=== PATIENT | female | born 1965 | race Caucasian/White ===

== ENCOUNTER → 2019-02-25 09:14 | Outpatient (CLI) | payer BC, SELFPAY ==
[2019-02-25 09:57] LABS: Cholesterol 232 mg/dL (140-199); HDL Cholesterol 52 mg/dL (40-60); LDL Cholesterol Calculated 153 mg/dL (<100); Triglycerides 135 mg/dL (35-150); VLDL Cholesterol Calculated 27 mg/dL (2-30)
[2019-02-25 10:28] LABS: Thyroid Stimulating Hormone 2.52 uIU/mL (0.47-4.68)
== END ==
DX: E03.9 Hypothyroidism, unspecified (principal)
CPT/HCPCS: 36415; 80061; 84443

== ENCOUNTER → 2020-02-09 12:30 | Outpatient (CLI) | payer OTHER, BC, SELFPAY ==
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
== END ==
PROVIDERS: Referring Provider Physician Assistant; Visit Provider Physician Assistant
DX: S49.92XA Unspecified injury of left shoulder and upper arm, initial encounter (principal); R10.2 Pelvic and perineal pain; X58.XXXA Exposure to other specified factors, initial encounter
CPT/HCPCS: 72170; 73000; 73030

== ENCOUNTER → 2020-02-11 16:53 | Outpatient (CLI) | payer OTHER, BC, SELFPAY ==
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
== END ==
PROVIDERS: PCP Registered Nurse Diabetes Educator; Referring Provider Nurse Practitioner; Visit Provider Nurse Practitioner
DX: S40.011A Contusion of right shoulder, initial encounter (principal); M25.511 Pain in right shoulder; V89.2XXA Person injured in unspecified motor-vehicle accident, traffic, initial encounter
CPT/HCPCS: 71046; 73030

== ENCOUNTER → 2020-02-16 15:29 | Outpatient (CLI) | payer OTHER, SELFPAY ==
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
== END ==
PROVIDERS: PCP Registered Nurse Diabetes Educator; Referring Provider Nurse Practitioner; Visit Provider Nurse Practitioner
DX: M54.2 Cervicalgia (principal); M47.812 Spondylosis without myelopathy or radiculopathy, cervical region
CPT/HCPCS: 72125

== ENCOUNTER → 2020-03-24 11:11 | Outpatient (CLI) | payer OTHER, SELFPAY ==
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
== END ==
PROVIDERS: PCP Registered Nurse Diabetes Educator; Referring Provider Nurse Practitioner Family; Visit Provider Nurse Practitioner Family
DX: R07.81 Pleurodynia (principal)
CPT/HCPCS: 71101

== ENCOUNTER → 2020-04-17 08:45 | Outpatient (CLI) | payer BC, SELFPAY ==
[2020-04-17 10:52] LABS: Cholesterol 232 mg/dL (140-199); HDL Cholesterol 52 mg/dL (40-60); LDL Cholesterol Calculated 154 mg/dL (<100); Triglycerides 128 mg/dL (35-150); VLDL Cholesterol Calculated 26 mg/dL (2-30)
[2020-04-17 11:19] LABS: Thyroid Stimulating Hormone 2.46 uIU/mL (0.47-4.68)
== END ==
PROVIDERS: PCP Registered Nurse Diabetes Educator; Referring Provider Registered Nurse Diabetes Educator; Visit Provider Registered Nurse Diabetes Educator
DX: E03.9 Hypothyroidism, unspecified (principal)
CPT/HCPCS: 36415; 80061; 84443

== ENCOUNTER → 2020-09-03 11:04 | Outpatient (CLI) | payer BC, SELFPAY ==
[2020-09-03 11:36] LABS: COVID19 -Nasal RAPID POSITIVE (Negative)
== END ==
PROVIDERS: PCP Nurse Practitioner; Visit Provider Physician Assistant
DX: U07.1 COVID-19 (principal)
CPT/HCPCS: 87635

== ENCOUNTER 2020-11-22 18:35 | Inpatient (IN) | payer BC, SELFPAY ==
[2020-11-22] VITALS (9 sets, daily range): BP systolic 107–128; BP diastolic 63–71; PULSE 60–72; RESP 16–29; TEMP 37.2; O2SAT 96–100; BMI 26.1
[2020-11-22] MEDS: KETOROLAC 30 MG/ML VIAL 15 MG IV (19:51)
[2020-11-22] MEDS: ONDANSETRON 4 MG/2 ML INJ IV (19:58)
[2020-11-22 20:04] LABS: Add Manual Diff / Slide Review NO; Basophils Absolute Auto 0 /uL (0-100); Basophils Percent Auto 0.3 % (0-2); Eosinophils Absolute Auto 0 /uL (0-450); Eosinophils Percent Auto 0.1 % (2-4); Hematocrit 41.8 % (36-46); Hemoglobin 13.7 g/dL (12.0-16.0); Lymphocytes Absolute Auto 1100 /uL (1100-4500); Lymphocytes Percent Auto 8.5 % (25-40); Mean Corpuscular HGB Conc 32.8 % (30-36); Mean Corpuscular Hemoglobin 26.6 PG (26-34); Monocytes Absolute Auto 800 /uL (0-900); Monocytes Percent Auto 6.2 % (3-14); Neutrophils Absolute Auto 11300 /uL (1500-7000); Neutrophils Percent Auto 84.9 % (50-75); Platelet Count 193 X10^3/uL (150-400); Red Blood Cell Count 5.15 X10^6/uL (4.0-5.2); Red Cell Distribution Width 13.9 % (11.6-14.8); White Blood Cell Count 13.3 X10^3/uL (4.5-11.0)
[2020-11-22 20:22] LABS: Alanine Aminotransferase 20 IU/L (<35); Albumin 4.2 g/dL (3.5-5.0); Albumin Globulin Ratio 1.1 (1.0-2.8); Alkaline Phosphatase 72 U/L (38-126); Aspartate Aminotransferase 29 IU/L (14-36); BUN Creatinine Ratio 12.9 (6-22); Bilirubin Total 2.9 mg/dL (0.2-1.3); Blood Urea Nitrogen 11 mg/dL (7-17); Calcium 9.5 mg/dL (8.4-10.2); Carbon Dioxide 25 mmol/L (22-32); Chloride 102 mmol/L (98-107); Estimated Glomerular Filt Rate > 60.0 mL/min (>60); Globulin 3.7 g/dL (1.7-4.1); Glucose 119 mg/dL (70-100); HEMOLYSIS < 15 (0-50); Lipase 105 U/L (23-300); Potassium 3.6 mmol/L (3.4-5.1); Sodium 136 mmol/L (137-145); Total Protein 7.9 g/dL (6.3-8.2)
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
[2020-11-22] MEDS: PIPERACILLIN/TAZO 4.5 GM in SODIUM CHLORIDE 0.9% 100 ML 200 ML IV (21:22)
[2020-11-22] MEDS: MORPHINE 4 MG/ML INJ IV ×2 (21:22→23:17)
[2020-11-22] MEDS: SODIUM CHLORIDE 0.9% 1,000 ML 1000 ML IV (21:23)
--- NOTE | 2020-11-22 21:47 | PC.NURSE ---
Patient refused the Covid swab; states she was positive in August and that she is immune and refuses the admit swab. notified.
[2020-11-22 22:34] LABS: COVID19 -Nasal RAPID Negative (Negative)
--- NOTE | 2020-11-22 22:37 | PC.NURSE ---
Pt given ice chips with ok from Dr Aggarwal. NPO after midnight.
--- NOTE | 2020-11-22 23:50 | PC.NURSE ---
Patient moved upstairs to Room 214; daughter accompanied patient upstairs. RN-RN report given to Jannet.
[2020-11-23] VITALS (22 sets, daily range): BP systolic 88–119; BP diastolic 51–75; PULSE 57–89; RESP 14–20; TEMP 35.8–39.4; O2SAT 89–100; BMI 26.1
--- NOTE | 2020-11-23 | PATH_ITS ---
[facility] Accession Number: [id number] . 01 Material submitted: . appendix - APPENDIX . 01 Clinical history: . RIGHT SIDE LOWER PAIN . 02 Diagnosis: Appendix, Appendectomy: Acute appendicitis with serositis and features of rupture. MRV 11/26/2020 1236 Local . 02 Electronically signed: . Ivon Jenkins MD, Pathologist NPI- [id number] . 01 Gross description: . The specimen is received in formalin labeled appendix and consists of a fragmented tissue, and disrupted appendix measuring 6.5 cm in length x 0.8 cm in diameter. The serosa is anthony-pink and ragged. Sectioning reveals a anthony-pink mucosa and a lumen measuring 0.3 cm in diameter. [employer] sections are submitted, to include the en face margin (green), central cross sections and bisected tip, in cassette A1. ([id number]) /[facility] 11/26/2020 1037 Local . 02 Pathologist provided ICD-10: K35.20 . 02 CPT . 245192 Performed at: 01 [facility] [address], [place], [place] [id number] MD Frandy Cronin MD Phone: [phone] Performed at: 02 [facility] [address] [place], [place] [id number] MD Bertha Briones MD Phone: [phone]
[2020-11-23] MEDS: SODIUM CHLORIDE 0.9% 1,000 ML 125 ML IV ×2 (00:46→11:31)
[2020-11-23] MEDS: MORPHINE 4 MG/ML INJ IV (00:57)
[2020-11-23] MEDS: PIPERACILLIN/TAZO 4.5 GM in SODIUM CHLORIDE 0.9% 100 ML 25 ML IV ×3 (05:13→20:51)
--- NOTE | 2020-11-23 06:07 | PC.NURSE ---
Patient temperature increased from 99.6 to 103. Patient was cooled with cool packs and blankets removed. Temp was recheck 30 min later and was down to 102.9. Cooling measures continued and rechecked temp 30 min later. Temperature at 0600 was back to 103. Dr. Otto was paged at 0600. Dr. Otto returned the call at 0610 and stated not to worry about the fever. No orders received.
[2020-11-23 06:50] LABS: WBC Urine None Seen (0-5/HPF)
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
[2020-11-23] MEDS: LACTATED RINGERS 1,000 ML 42 ML IV ×2 (07:24→08:39)
[2020-11-23 07:26] LABS: Appearance Urine UA TURBID; Bilirubin Urine UA NEGATIVE (NEGATIVE); Color Urine UA YELLOW; Glucose Urine UA NEGATIVE (Negative); Ketones Urine UA 1+ (NEGATIVE); Leukocyte Esterase Urine UA NEGATIVE (NEGATIVE); Nitrite Urine UA NEGATIVE (Negative); Occult Blood Urine UA 2+ (Negative); Protein Urine UA TRACE (Negative); Urobilinogen Urine UA 0.2 E.U./dL (0.2)
[2020-11-23 07:30] LABS: RBC Urine 0-1/HPF (0-5/HPF)
[2020-11-23 07:31] LABS: Amorphous Sediment Urine 4+; Bacteria Urine Occasional (0-1); Culture Indicated Urine Cult Not Indicated
--- NOTE | 2020-11-23 07:58 | SUR.OPER ---
Supine on padded OR bed, head on pillow, arm padded and tucked at side, legs uncrossed, safety belt at thigh, tape over blanket over lower legs .
[2020-11-23] MEDS: BUPIVACAINE 0.25% (PF) VIAL 30 ML INJ (08:07)
--- NOTE | 2020-11-23 09:23 | PM.OP.1 ---
Operative Date/Time/Diagnoses Date of procedure: 11/23/20 Time of procedure: 09:23 Pre-op diagnosis: Acute appendicitis Post-op diagnosis: same Procedure & Clinicians Procedure: Laparoscopic appendectomy Same procedure as scheduled: Yes Indications: 55-year-old woman presented with [address] demonstrates acute appendicitis with free fluid Surgeon: Earle Otto Click Yes if Unassisted: Yes Anesthesia Type: General Operative Notes Findings: Perforated appendicitis with phlegmon Specimen(s): other (Appendix) Estimated Blood Loss (mL): 50 Procedure in detail: Patient was brought to the operating room placed supine on the table. Bilateral lower extremity compression devices were applied. Anesthesia was induced and they intubated with an endotracheal tube. They received 3.375 g of Zosyn prior to skin incision. The left arm was tucked and appropriately padded. They were prepped and draped in sterile fashion. Time-out was performed. An infraumbilical incision was made the umbilical stalk was grasped and elevated and incision was made and the abdomen was entered atraumatically. A 12 mm balloon trocar was then placed through the incision and pneumoperitoneum of 14 mm Hg was established. The scope was then inserted and the abdomen inspected, there was no evidence of injury upon entry. Two 5 mm ports were placed under direct visualization, one in the left lower quadrant and second in the lower midline. A thorough laparoscopic evaluation was performed inspecting all four quadrants. There was turbid fluid in the lower abdomen. The patient was then tilted right side up. The small bowel was then swept to the upper aspect of the abdomen. There were flimsy adhesions between the cecum and the abdominal wall which were carefully taken down. The tenie were followed to the base of the cecum where the base of the appendix was identified. The appendix was within a phlegmon which was bluntly dissected. The appendix was was mobilized from its lateral attachments. It was acutely inflamed and peforated. The mesoappendix was then divided the maryland electrocautery. The mesenteric line was inspected for hemostasis. The appendix was then amputated flush at the cecum using the endo-stapler blue load, the base was viable. The specimen was retrieved using an endoscopic retrieval bad through the 10 mm infra-umbilical port. The right paracolic gutter and the pouch of Darrell were irrigated A 19F marty was placed into the right lower quadrant brought out through the left lateral port. The 5 mm ports were then removed under direct visualization. The umbilical fascial incision was closed with 0 Vicryl in a figure-eight fashion. The skin wounds were irrigated and closed with 4-0 Monocryl followed by the application of Dermabond. Sponge instrument count at the end of the operation was correct. The patient tolerated procedure well was extubated and transferred to the postoperative care unit in stable condition. Complications: none Post-operative Condition: stable Disposition: Acute Care
--- NOTE | 2020-11-23 10:48 | PC.NURSE ---
Addendum entered by Amelie Bowden R.N. 11/23/20 15:17: Patient given oxycodone and tylenol earlier for sharp pain and headache. This has been helpful to patient. She was up to the commode x1 and moved well. Daughter in room. Patient has had 200+plus out of her eder drain, last amount out was 20cc. Passed onto Annamaria RN...She will call the surgeon to notify him if the amount of drainage becomes more. She is resting now. Original Note: Patient back from surgery aroundd 0945, she is awake but sleepy. Patient has a eder drain that is putting out strawberry colored drainage. She has lap site incisions with the marty drain present to left side of abdomen. She is tolerating cranberry juice and water without any nausea. Patient is lying supine and comfortable. IVF infusing.
[2020-11-23] MEDS: ACETAMINOPHEN 325 MG TABLET 650 MG PO ×3 (12:34→23:47)
[2020-11-23] MEDS: OXYCODONE IR 5 MG TABLET PO ×2 (12:34→21:06)
--- NOTE | 2020-11-23 13:47 | CM.DANOTE ---
DCP Brief Assessment Note Patient is a 55 year old female who was admitted on 11/22/20 for R Side Lower Pain. Pt has [employer] for insurance and her PCP is Yvonne Aragon. EMR was reviewed. Per Surgeon, pt with acute appendicitis likely ruptured and agreeable to recommended Lap Appe and was taken down to surgery this morning. Per RN, pt off the floor most of the morning in surgery and returned quite drowsy but appropriate. Plan: SW to follow for bedside assessment tomorrow when pt more medically appropriate to confirm likely plan of d/c home with family when stable. JOSE Antonio
[2020-11-23] MEDS: DOCUSATE 100 MG CAPSULE PO (20:51)
[2020-11-24] VITALS (14 sets, daily range): BP systolic 94–104; BP diastolic 56–74; PULSE 45–92; RESP 16–18; TEMP 36.1–36.9; O2SAT 96–100
--- NOTE | 2020-11-24 00:50 | PC.NURSE ---
Patients BP reading was 88/60 with a HR of 57, however the patient states this is pretty normal, as she tends to run low. Patient states she feels foggy but denies lightheaded or dizziness. Patient states she has felt foggy since surgery and there hasn't been an increase. Patients dressings had been removed and slight redness was noted at incision sites. Patient had scheduled Tylenol given and denies an increase in pain. Patient resting comfortably in bed with call light within reach. Patient was educated to call if she has a change in foggy feeling or begins to feel lightheaded or dizzy.
[2020-11-24] MEDS: SODIUM CHLORIDE 0.9% 1,000 ML 125 ML IV (02:10)
[2020-11-24] MEDS: PIPERACILLIN/TAZO 4.5 GM in SODIUM CHLORIDE 0.9% 100 ML 25 ML IV (05:19)
[2020-11-24] MEDS: ACETAMINOPHEN 325 MG TABLET 650 MG PO ×3 (05:20→17:58)
[2020-11-24] MEDS: LEVOTHYROXINE 25 MCG TABLET PO (05:20)
[2020-11-24 05:46] LABS: Add Manual Diff / Slide Review NO; Basophils Absolute Auto 0 /uL (0-100); Basophils Percent Auto 0.2 % (0-2); Eosinophils Absolute Auto 0 /uL (0-450); Hematocrit 33.9 % (36-46); Hemoglobin 11.1 g/dL (12.0-16.0); Lymphocytes Absolute Auto 1200 /uL (1100-4500); Lymphocytes Percent Auto 9.1 % (25-40); Mean Corpuscular HGB Conc 32.6 % (30-36); Mean Corpuscular Hemoglobin 26.8 PG (26-34); Monocytes Absolute Auto 1000 /uL (0-900); Monocytes Percent Auto 7.4 % (3-14); Neutrophils Absolute Auto 11100 /uL (1500-7000); Neutrophils Percent Auto 83.3 % (50-75); Platelet Count 144 X10^3/uL (150-400); Red Blood Cell Count 4.14 X10^6/uL (4.0-5.2); Red Cell Distribution Width 14.2 % (11.6-14.8); White Blood Cell Count 13.3 X10^3/uL (4.5-11.0)
[2020-11-24 05:54] LABS: BUN Creatinine Ratio 15.2 (6-22); Blood Urea Nitrogen 12 mg/dL (7-17); Calcium 8.3 mg/dL (8.4-10.2); Carbon Dioxide 25 mmol/L (22-32); Chloride 107 mmol/L (98-107); Estimated Glomerular Filt Rate > 60.0 mL/min (>60); Glucose 111 mg/dL (70-100); HEMOLYSIS < 15 (0-50); Potassium 3.6 mmol/L (3.4-5.1); Sodium 136 mmol/L (137-145)
[2020-11-24] MEDS: ENOXAPARIN 40 MG/0.4 ML SYRINGE SUBCUT (08:14)
[2020-11-24] MEDS: KETOROLAC 30 MG/ML VIAL IV ×2 (08:15→17:06)
[2020-11-24] MEDS: METOPROLOL ER 50 MG TABLET PO (08:25)
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
[2020-11-24] MEDS: HYDROCODONE/ACET 5/325 TABLET 1 TAB PO (10:37)
--- NOTE | 2020-11-24 11:20 | CM.DANOTE ---
Per Surgeon, pt making progress after her Lap Appe with rupture and starting to ambulate more but due to white count and rupture MD to have pt with at least one more day of IV-Abx and then recheck white count towards possible d/c tomorrow if stable. SW met briefly bedside with pt and adult Dtr as [employer] was getting pt prepared for ambulating the taylor some and pt confirms that she is aware she may be stable for d/c tomorrow if white count is normal. Pt confirms that her will be able to provide assist at d/c as well as some assist from her Dtr. Pt is quite active and independent at baseline and does not anticipate any SW needs at d/c. Plan: SW to follow closely to determine if pt will be stable for d/c home with family assist tomorrow and any further identified discharge planning needs. JOSE Antonio Discharge Planning/Care Management Advanced directive, confirm from FAMILY Start: 11/23/20 00:20 Freq: Q24H Status: Active Protocol: Document 11/23/20 00:20 JK (Rec: 11/23/20 03:38 JK [id number]) Advance Directive, confirm on record Time 23:55 Person contacted patient Copy received No Document 11/24/20 00:20 JK (Rec: 11/24/20 01:13 JK [id number]) Advance Directive, confirm on record Time 23:55 Person contacted patient Copy received No Document 11/24/20 07:40 CM (Rec: 11/24/20 09:51 CM [id number]) Advance Directive, confirm on record Time 23:55 Person contacted patient Copy received No Time 09:48 Person contacted Pt Copy received No Advanced directive available on record No CM Discharge Assessment Start: 11/24/20 11:19 Freq: Status: Active Protocol: Document 11/24/20 11:19 BF (Rec: 11/24/20 11:20 BF [id number]) Discharge Planning Assessment 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 Yes Advance Directives on File No History Provided By Patient,Medical Record Has Patient been admitted in last 30 No days? Prior Living Arrangements House Household Members spouse Type of transporation used prior to Drives own vehicle admit Independent with ADL's Yes Is patient alert and oriented? Yes Caregiver for Another No Barriers to Discharge No Discharge Plan Home Transportation Arrangement Spouse or adult Dtr to transport at d/c Referrals Initiated None needed Review Status In Process Please Provide Date Initial DC 11/24/20 Assessment Was Performed Next Review Type Continued Stay Review
[2020-11-24] MEDS: PIPERACILLIN/TAZO 3.375 GM in SODIUM CHLORIDE 0.9% 100 ML 25 ML IV ×2 (13:33→22:09)
[2020-11-24] MEDS: DOCUSATE 100 MG CAPSULE PO (22:09)
--- NOTE | 2020-11-24 23:15 | PC.NURSE ---
A&ox3. VSS. Pain 5/10 in abdomen, given toradol at 1706 which provided some relief (2-3/10). Garfield drain draining serosanguineous fluid. 1 person assist with walker and gait belt. Saline locked. Call light within reach, bed low.
[2020-11-25] MEDS: HYDROCODONE/ACET 5/325 TABLET 1 TAB PO (00:30)
[2020-11-25 01:00] VITALS: BP 100/71; PULSE 58; RESP 18; TEMP 36.6; O2SAT 95; O2SAT 96
[2020-11-25 05:00] VITALS: BP 96/61; PULSE 58; RESP 16; TEMP 36.3; O2SAT 94; O2SAT 97
[2020-11-25] MEDS: PIPERACILLIN/TAZO 3.375 GM in SODIUM CHLORIDE 0.9% 100 ML 25 ML IV (05:11)
[2020-11-25 05:55] LABS: Add Manual Diff / Slide Review NO; Basophils Absolute Auto 0 /uL (0-100); Basophils Percent Auto 0.3 % (0-2); Eosinophils Absolute Auto 100 /uL (0-450); Eosinophils Percent Auto 1.6 % (2-4); Hematocrit 31.5 % (36-46); Hemoglobin 10.4 g/dL (12.0-16.0); Lymphocytes Absolute Auto 1400 /uL (1100-4500); Lymphocytes Percent Auto 15.1 % (25-40); Mean Corpuscular HGB Conc 32.8 % (30-36); Mean Corpuscular Hemoglobin 26.8 PG (26-34); Mean Corpuscular Volume 81.7 fL (80-100); Monocytes Absolute Auto 500 /uL (0-900); Monocytes Percent Auto 5.3 % (3-14); Neutrophils Absolute Auto 7000 /uL (1500-7000); Neutrophils Percent Auto 77.7 % (50-75); Platelet Count 161 X10^3/uL (150-400); Red Blood Cell Count 3.86 X10^6/uL (4.0-5.2)
[2020-11-25 05:58] LABS: BUN Creatinine Ratio 14.9 (6-22); Blood Urea Nitrogen 13 mg/dL (7-17); Calcium 8.2 mg/dL (8.4-10.2); Carbon Dioxide 26 mmol/L (22-32); Chloride 108 mmol/L (98-107); Estimated Glomerular Filt Rate > 60.0 mL/min (>60); Glucose 86 mg/dL (70-100); HEMOLYSIS < 15 (0-50); Potassium 3.2 mmol/L (3.4-5.1); Sodium 137 mmol/L (137-145)
[2020-11-25] MEDS: LEVOTHYROXINE 25 MCG TABLET PO (06:14)
[2020-11-25] MEDS: ACETAMINOPHEN 325 MG TABLET 650 MG PO (06:14)
[2020-11-25] MEDS: KETOROLAC 30 MG/ML VIAL IV (06:15)
[2020-11-25 08:00] VITALS: BP 104/60; PULSE 52; RESP 16; TEMP 36.6; O2SAT 96
[2020-11-25 09:00] VITALS: O2SAT 96
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
--- NOTE | 2020-11-25 09:20 | PC.NURSE ---
Addendum entered by Monalisa Bettencourt R.N. 11/25/20 10:45: Went over dc instructions with patient and patients daughter, questions answered. Rx sent to [facility] electronically. Patient aware of follow up appt. Patient taken via wc to vehicle driven by family. Patient had all belongings. Original Note: Patient alert,m oriented denies need for pain meds at this time, no nausea ate 50% general diet. Dr Otto removed PAWAN drain.
--- NOTE | 2020-11-25 11:32 | CM.DPNOTE ---
DC Note DC order in place, home today, drain removed, w/family to assist. No needs from DCP team today JW
== END 2020-11-25 10:47 | disposition home or self-care (01) | DRG 340 ==
LOC: ED 22:17 → AC 11-23 06:56
PROVIDERS: Admitting Provider Surgery; Emergency Provider Emergency Medicine; PCP Nurse Practitioner; Visit Provider Surgery
PROC: 0DTJ4ZZ Resection of Appendix, Percutaneous Endoscopic Approach (ICD-10-PCS; CPT 44970; principal; 2020-11-23 07:30)
DX: K35.33 Acute appendicitis with perforation, localized peritonitis, and gangrene, with abscess (principal); I10 Essential (primary) hypertension; I48.91 Unspecified atrial fibrillation; E03.9 Hypothyroidism, unspecified; Z20.822 Contact with and (suspected) exposure to COVID-19
CPT/HCPCS: 36415; 44970; 74177; 80048; 80053; 81001; 83690; 85025; 87635; 93005; 94760; 99222; 99284; C9803; J0330; J1100; J1650; J1885; J2270; J2405; J2543; J2704; J3010; Q9967

== ENCOUNTER 2020-12-05 20:05 | Inpatient (IN) | payer BC, SELFPAY ==
[2020-11-22 23:57] VITALS: BMI 26.1
[2020-12-05] VITALS (10 sets, daily range): BP systolic 96–117; BP diastolic 56–68; PULSE 64–87; RESP 18–19; TEMP 36.9–38.4; O2SAT 92–100; BMI 25.4
--- NOTE | 2020-12-05 20:31 | DI.RAD.S_ITS ---
PROCEDURE: XR CHEST 1V INDICATIONS: suspected sepsis TECHNIQUE: One view of the chest was acquired. COMPARISON: [facility], , XR CHEST 2V, 02/11/2020, 16:55. FINDINGS: Surgical changes and devices: None. Lungs and pleura: Lungs are clear. No pleural effusions or pneumothorax. Mediastinum: Mediastinal contours appear normal. Heart size is normal. Bones and chest wall: No suspicious bony lesions. Overlying soft tissues appear unremarkable. IMPRESSION: Stable radiographic evaluation of the chest without acute cardiopulmonary abnormalities or focal airspace disease. Dictated by: Velasquez Orozco M.D. on 12/05/2020 at 21:11 Approved by: Velasquez Orozco M.D. on 12/05/2020 at 21:12
[2020-12-05] MEDS: SODIUM CHLORIDE 0.9% 1,000 ML 1000 ML IV (20:40)
[2020-12-05 20:53] LABS: Add Manual Diff / Slide Review NO; Basophils Absolute Auto 100 /uL (0-100); Basophils Percent Auto 0.8 % (0-2); Eosinophils Absolute Auto 200 /uL (0-450); Hematocrit 38.1 % (36-46); Hemoglobin 12.4 g/dL (12.0-16.0); Lymphocytes Absolute Auto 2000 /uL (1100-4500); Lymphocytes Percent Auto 12.3 % (25-40); Mean Corpuscular HGB Conc 32.5 % (30-36); Mean Corpuscular Hemoglobin 26.4 PG (26-34); Mean Corpuscular Volume 81.1 fL (80-100); Monocytes Absolute Auto 900 /uL (0-900); Monocytes Percent Auto 5.6 % (3-14); Neutrophils Absolute Auto 12900 /uL (1500-7000); Neutrophils Percent Auto 80.3 % (50-75); Platelet Count 389 X10^3/uL (150-400); Red Cell Distribution Width 14.1 % (11.6-14.8); White Blood Cell Count 16.1 X10^3/uL (4.5-11.0)
[2020-12-05 21:04] LABS: Lactate (Lactic Acid) 0.6 mmol/L (0.7-2.1)
[2020-12-05 21:05] LABS: Alanine Aminotransferase 26 IU/L (<35); Albumin Globulin Ratio 1.1 (1.0-2.8); Alkaline Phosphatase 100 U/L (38-126); Aspartate Aminotransferase 25 IU/L (14-36); BUN Creatinine Ratio 20.3 (6-22); Bilirubin Total 0.9 mg/dL (0.2-1.3); Blood Urea Nitrogen 16 mg/dL (7-17); Calcium 9.2 mg/dL (8.4-10.2); Carbon Dioxide 21 mmol/L (22-32); Chloride 105 mmol/L (98-107); Estimated Glomerular Filt Rate > 60.0 mL/min (>60); Globulin 3.8 g/dL (1.7-4.1); Glucose 113 mg/dL (70-100); HEMOLYSIS < 15 (0-50); Lipase 387 U/L (23-300); Sodium 136 mmol/L (137-145); Total Protein 7.8 g/dL (6.3-8.2)
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
--- NOTE | 2020-12-05 21:20 | DI.CT.S_ITS ---
PROCEDURE: CT ABDOMEN PELVIS W CON INDICATIONS: RLQ post appy with fever TECHNIQUE: After the administration of intravenous contrast, axial sections acquired from the lung bases to the pubic symphysis. Coronal and sagittal reformats were performed. For radiation dose reduction, the following was used: automated exposure control, adjustment of mA and/or kV according to patient size. COMPARISON: [facility], CT, CT ABDOMEN PELVIS W CON, 11/22/2020, 21:07. FINDINGS: ABDOMEN: Lung bases: Normal. Heart: No significant findings. Liver: Normal. Gallbladder: Contracted otherwise unremarkable Bile ducts: Normal. Pancreas: Normal. Spleen: Normal. Adrenals: Normal. Kidneys and Ureters: Normal. Stomach and duodenum: Normal. Bowel: No evidence of bowel obstruction. There is moderate stool. Postsurgical changes related to appendectomy, with clips in the right lower quadrant. Right lower quadrant inflammatory stranding is present in the operative area. There is a multiloculated complex fluid collection with early peripheral enhancement. Overall, the area measures approximately 3.3 x 3.4 x 4.5 cm. Other: No free air identified. Abdominal nodes: Normal. Aorta and IVC: Normal in size. Ventral wall: Normal. PELVIS: Bladder: Normal. Inguinal region: No hernia. Pelvic nodes: Normal. Bones: No suspicious bony lesions. No vertebral body compression fractures. IMPRESSION: Status post appendectomy. Developing right lower quadrant complex abscess. Findings concordant with the preliminary study interpretation provided at the time of the exam. Dictated by: Chapito Dhaliwal M.D. on 12/06/2020 at 8:05 Approved by: Chapito Dhaliwal M.D. on 12/06/2020 at 8:12
[2020-12-05 21:22] LABS: Procalcitonin 0.07 ng/mL (<0.5)
[2020-12-05] MEDS: MORPHINE 2 MG/ML INJ IV (22:19)
[2020-12-05] MEDS: PIPERACILLIN/TAZO 4.5 GM in SODIUM CHLORIDE 0.9% 100 ML 200 ML IV (23:18)
--- NOTE | 2020-12-05 23:31 | PC.NURSE ---
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 Dr Vasquez aware.
[2020-12-06 00:07] VITALS: BMI 26.4
[2020-12-06 00:30] LABS: COVID19 - ADMIT (NP swab/PCR) Negative (Negative)
[2020-12-06] MEDS: OXYCODONE IR 5 MG TABLET PO ×2 (01:08→22:28)
[2020-12-06] MEDS: DEXTROSE 5%-0.45% NS 1,000 ML 100 ML IV (01:13)
[2020-12-06] MEDS: PIPERACILLIN/TAZO 3.375 GM in SODIUM CHLORIDE 0.9% 100 ML 25 ML IV ×3 (03:42→21:34)
[2020-12-06 06:19] LABS: Add Manual Diff / Slide Review NO; Basophils Absolute Auto 100 /uL (0-100); Basophils Percent Auto 0.7 % (0-2); Eosinophils Absolute Auto 200 /uL (0-450); Eosinophils Percent Auto 1.7 % (2-4); Hemoglobin 11.2 g/dL (12.0-16.0); Lymphocytes Absolute Auto 1600 /uL (1100-4500); Lymphocytes Percent Auto 12.7 % (25-40); Mean Corpuscular HGB Conc 32.1 % (30-36); Mean Corpuscular Hemoglobin 26.4 PG (26-34); Mean Corpuscular Volume 82.1 fL (80-100); Monocytes Absolute Auto 1200 /uL (0-900); Monocytes Percent Auto 9.4 % (3-14); Neutrophils Absolute Auto 9700 /uL (1500-7000); Neutrophils Percent Auto 75.5 % (50-75); Platelet Count 333 X10^3/uL (150-400); Red Blood Cell Count 4.26 X10^6/uL (4.0-5.2); Red Cell Distribution Width 14.1 % (11.6-14.8); White Blood Cell Count 12.9 X10^3/uL (4.5-11.0)
[2020-12-06] MEDS: ACETAMINOPHEN 325 MG TABLET 650 MG PO ×3 (07:25→18:44)
[2020-12-06 08:00] VITALS: BP 95/61; PULSE 62; RESP 16; TEMP 37.3; O2SAT 97
[2020-12-06] MEDS: LEVOTHYROXINE 25 MCG TABLET PO (08:08)
[2020-12-06] MEDS: ENOXAPARIN 30 MG/0.3 ML SYRINGE SUBCUT (08:10)
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
[2020-12-06] MEDS: CELECOXIB 200 MG CAPSULE PO ×2 (09:47→21:33)
[2020-12-06] MEDS: DOCUSATE 100 MG CAPSULE PO ×2 (11:17→21:33)
--- NOTE | 2020-12-06 15:09 | PC.NURSE ---
Pt reports moderate pain of 4-5/10 to RUQ today, but declines opioid pain medication; PO Tylenol and PO Celebrex; BTs tympanic; low appetite but tolerating water; IV fluids continuing to infuse due to low oral intake; IV abx infusing
--- NOTE | 2020-12-06 15:24 | CM.DANOTE ---
DCP ASSESSMENT: Patient is a 55 year-old female admitted for surgical complications intra-abdominal abscess post appendectomy on 11/22/20. PCP Yvonne Aragon. Primary payer [facility] Out of [facility]. 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 Educated patient on role of social work in discharge planning. Patient is Independent with all ADL?s at baseline including driving. Her [facility]on Menendez will provide transportation at time of D/C. Per Dr. Otto patient will have a ?US guided percutaneous drain placement of RLQ abscess tomorrow 12/07? Will continue to monitor for any D/C plan needs. Patient is currently on antibiotics unclear if she will need IV vs PO at time of D/C. PLAN: Anticipate D/C home when medically stable. CM Team will continue to follow and monitor for any additional needs at time of D/C, IV vs PO meds. JOSE Odell MSW Student Discharge Planning/Care Management Advanced directive, confirm from FAMILY Start: 12/06/20 00:32 Freq: Q24H Status: Active Protocol: Document 12/06/20 00:32 HCW (Rec: 12/06/20 02:45 HCW [id number]) Advance Directive, confirm on record Time 00:30 Person contacted patient Copy received No CM Discharge Assessment Start: 12/06/20 11:52 Freq: Status: Active Protocol: Document 12/06/20 11:52 AL (Rec: 12/06/20 11:54 AL [id number]) Discharge Planning Assessment Assigned Custodian Manager JOSE Cortez Contact Information Calderon Menendez, [phone] Advance Directives? Yes Advance Directives on File No History Provided By Patient,Medical Record Has Patient been admitted in last 30 Yes days? Comment She had an appendectomy on 11/22 Prior Living Arrangements House Household Members spouse Type of transporation used prior to Drives own vehicle admit Independent with ADL's Yes Is patient alert and oriented? Yes Discharge Plan Home Transportation Arrangement Spouse to provide transportation at time of D/C Whiteboard Updated in Patient Room with Yes name and ext. # of Custodian Manager Review Status In Process
[2020-12-06 16:00] VITALS: BP 92/64; PULSE 51; RESP 16; TEMP 36.8; O2SAT 96
[2020-12-06 20:25] VITALS: BP 94/55; PULSE 58; RESP 16; TEMP 37.1; O2SAT 96
[2020-12-07] VITALS (15 sets, daily range): BP systolic 81–113; BP diastolic 49–67; PULSE 52–78; RESP 15–18; TEMP 36.2–37.8; O2SAT 95–100
--- NOTE | 2020-12-07 01:36 | PC.NURSE ---
patient is alert and oriented. Breath sounds diminished throughout; respirations are shallow with RA sat of 95%. Discussed importance of CDB; verbalizes understanding. HRR w/BP of 94/61 and trends low which patient reports is normal. Denies nausea. BT present and passing flatus. Pain/tenderness in RLQ of abdomen and rates severity as 4/10 but declines offer of pain medication. Denies dysuria, frequency or urgency with urination. Able to turn self in bed. Out of bed with SBA for safety. Agreeable to having bilateral calf SCD's applied. Fall risk score is low.
[2020-12-07] MEDS: DEXTROSE 5%-0.45% NS 1,000 ML 100 ML IV (02:44)
[2020-12-07] MEDS: PIPERACILLIN/TAZO 3.375 GM in SODIUM CHLORIDE 0.9% 100 ML 25 ML IV ×3 (03:52→22:41)
[2020-12-07 06:26] LABS: Add Manual Diff / Slide Review NO; Basophils Absolute Auto 100 /uL (0-100); Basophils Percent Auto 0.7 % (0-2); Eosinophils Absolute Auto 200 /uL (0-450); Eosinophils Percent Auto 1.6 % (2-4); Hematocrit 33.8 % (36-46); Hemoglobin 10.9 g/dL (12.0-16.0); Lymphocytes Absolute Auto 1100 /uL (1100-4500); Lymphocytes Percent Auto 9.3 % (25-40); Mean Corpuscular HGB Conc 32.2 % (30-36); Mean Corpuscular Hemoglobin 26.3 PG (26-34); Mean Corpuscular Volume 81.5 fL (80-100); Monocytes Absolute Auto 1100 /uL (0-900); Neutrophils Absolute Auto 9300 /uL (1500-7000); Neutrophils Percent Auto 79.4 % (50-75); Platelet Count 335 X10^3/uL (150-400); Red Blood Cell Count 4.15 X10^6/uL (4.0-5.2); White Blood Cell Count 11.7 X10^3/uL (4.5-11.0)
--- NOTE | 2020-12-07 08:56 | DI.CT.S_ITS ---
PROCEDURE: CT DRAIN APPENDICEAL ABSCESS COMPARISON: [facility], CT, CT ABDOMEN PELVIS W CON, 12/05/2020, 21:47. INDICATIONS: post lap appy abscess DESCRIPTION OF PROCEDURE: Informed consent was obtained. The patient was prepped and draped in the standard sterile fashion. Multiple CT images were used to localize the abnormality. Using local anesthetic and Seldinger technique, a needle was placed into the collection. Following guidewire placement, fascial dilators were used to dilate the tract and a drainage catheter was placed in the usual manner. The drainage tube was secured to the skin and a surgical dressing was applied. LOCATION: Right lower quadrant. TUBE SPECIFICATIONS: 8.5 Slovenian MEDICATIONS: Versed and fentanyl. Please see nursing note. COMPLICATIONS: None. FINDINGS: Abscess drainage catheter tip within the targeted abscess. CONCLUSION: Successful CT-guided percutaneous peritoneal drainage procedure. Dictated by: Che Alba M.D. on 12/07/2020 at 15:05 Approved by: Che Alba M.D. on 12/07/2020 at 15:14
--- NOTE | 2020-12-07 09:23 | PC.NURSE ---
Addendum entered by Amelie Bowden R.N. 12/07/20 14:09: Patient back from drain placement. Drain is putting out bloody drainage into a leg bag. Patient is laying on her l.side. Given tylenol, and celebrex, and synthroid. Patient is now on a general diet. Addendum entered by Amelie Bowden R.N. 12/07/20 12:20: Patient down to procedure around 1210 for drain placement. Original Note: Assess- Patient is alert and oriented x3, she has walked laps in the hallways. Patient states that she is anxious about her procedure, reassured her that she is in good hands when going down for drain placement. Bowel tones are hypoactive x4, she has small incisions that are scabbed over and healing, from lap appe surgery. She is denying pain at this time.
[2020-12-07 10:11] LABS: INR 1.2 (0.9-1.3); Prothrombin Time 13.5 SECONDS (10.1-12.7)
[2020-12-07 10:13] LABS: PTT Partial Thromboplastin Tim 31 SECONDS (26.4-36.2)
[2020-12-07] MEDS: ACETAMINOPHEN 325 MG TABLET 650 MG PO (13:43)
[2020-12-07] MEDS: DOCUSATE 100 MG CAPSULE PO ×2 (13:43→20:11)
[2020-12-07] MEDS: CELECOXIB 200 MG CAPSULE PO ×2 (13:43→20:11)
[2020-12-07] MEDS: LEVOTHYROXINE 25 MCG TABLET PO (13:43)
[2020-12-07] MEDS: MIDAZOLAM 2 MG/2 ML VIAL IV (14:25)
[2020-12-07] MEDS: fentaNYL 100 MCG/2 ML INJ 50 MCG IV (14:26)
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
[2020-12-07] MEDS: OXYCODONE IR 5 MG TABLET PO (22:40)
--- NOTE | 2020-12-07 23:20 | PC.NURSE ---
BP 82/53, 88/57. Patient denies being lightheaded or dizzy. All other vitals stable. Pain 4-5/10, given 5 mg oxycodone at 2250. Percutanious drain draining sanguineous fluid. Bed low, call light within reach. Independent in room.
[2020-12-08] VITALS (7 sets, daily range): BP systolic 96–117; BP diastolic 59–68; PULSE 47–58; RESP 16–17; TEMP 36.3–36.8; O2SAT 99–100
[2020-12-08] MEDS: PIPERACILLIN/TAZO 3.375 GM in SODIUM CHLORIDE 0.9% 100 ML 25 ML IV ×3 (05:50→22:16)
[2020-12-08] MEDS: LEVOTHYROXINE 25 MCG TABLET PO (05:50)
[2020-12-08 06:06] LABS: Add Manual Diff / Slide Review NO; Basophils Absolute Auto 100 /uL (0-100); Basophils Percent Auto 1.2 % (0-2); Eosinophils Absolute Auto 300 /uL (0-450); Eosinophils Percent Auto 3.4 % (2-4); Hematocrit 33.4 % (36-46); Hemoglobin 11.1 g/dL (12.0-16.0); Lymphocytes Absolute Auto 1500 /uL (1100-4500); Lymphocytes Percent Auto 19.8 % (25-40); Mean Corpuscular HGB Conc 33.1 % (30-36); Mean Corpuscular Hemoglobin 26.8 PG (26-34); Mean Corpuscular Volume 81.1 fL (80-100); Monocytes Absolute Auto 700 /uL (0-900); Monocytes Percent Auto 8.8 % (3-14); Neutrophils Absolute Auto 5100 /uL (1500-7000); Neutrophils Percent Auto 66.8 % (50-75); Platelet Count 320 X10^3/uL (150-400); Red Blood Cell Count 4.12 X10^6/uL (4.0-5.2); Red Cell Distribution Width 14.1 % (11.6-14.8); White Blood Cell Count 7.7 X10^3/uL (4.5-11.0)
[2020-12-08] MEDS: DOCUSATE 100 MG CAPSULE PO ×2 (08:40→20:58)
[2020-12-08] MEDS: CELECOXIB 200 MG CAPSULE PO ×2 (08:40→20:58)
[2020-12-08] MEDS: ACETAMINOPHEN 325 MG TABLET 650 MG PO ×2 (08:41→13:52)
[2020-12-08] MEDS: ENOXAPARIN 30 MG/0.3 ML SYRINGE SUBCUT (08:41)
--- NOTE | 2020-12-08 10:54 | PC.NURSE ---
Assess- Patient has drain to the r.side of her abdomen that is draining red blood. She states that she is feeling better, and is taking tylenol for discomfort during the day and 1 oxycodone at night time. She may be discharging home later and will pick her up after work. Sachi also has small incisions to her lower abdomen that are all cdi with healing scabs. Up independently to bathroom. She had a bowel movement this morning and is eating well at meals.
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
[2020-12-08] MEDS: OXYCODONE IR 5 MG TABLET PO ×2 (17:24→22:15)
--- NOTE | 2020-12-08 23:21 | PC.NURSE ---
VSS. A&Ox4. Pain has been around 4-5/10 in her left lower abdomen and back all shift. Was given 2.5 mg oxycodone at 17:24 which helped to decrease her pain and she was able to be comfortable enough to nap. Was given an additional does of 5 mg oxycodone with HS meds for pain 5/10. Patient is independent in her room. Call light within reach, bed low.
--- NOTE | 2020-12-09 00:33 | PC.NURSE ---
patient is alert and oriented. Breath sounds CTA with shallow respirations; RA sat is 99%. HRR but bradycardic in 40-50 range. Denies nausea. 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 Denies dysuria, frequency or urgency with urination. Is independent with mobility. Dressing to right lower back is CDI; drain intact and to gravity. States abdomen/back pain is 4/10 but had Oxycodone earlier and is starting to decrease; provided warm blanket for additional comfort. Refusing to wear SCD's tonight so reminded to ankle wave; verbalizes understanding. Fall risk score is low.
[2020-12-09] MEDS: ACETAMINOPHEN 325 MG TABLET 650 MG PO ×2 (04:59→14:30)
[2020-12-09 05:00] VITALS: BP 97/46; PULSE 47; RESP 15; TEMP 36.3; O2SAT 99
[2020-12-09] MEDS: LEVOTHYROXINE 25 MCG TABLET PO (05:58)
[2020-12-09] MEDS: PIPERACILLIN/TAZO 3.375 GM in SODIUM CHLORIDE 0.9% 100 ML 25 ML IV ×3 (05:58→21:38)
[2020-12-09 06:34] LABS: Add Manual Diff / Slide Review NO; Basophils Absolute Auto 100 /uL (0-100); Basophils Percent Auto 1.4 % (0-2); Eosinophils Absolute Auto 300 /uL (0-450); Eosinophils Percent Auto 5.4 % (2-4); Hematocrit 32.5 % (36-46); Hemoglobin 10.7 g/dL (12.0-16.0); Lymphocytes Absolute Auto 1300 /uL (1100-4500); Lymphocytes Percent Auto 28.1 % (25-40); Mean Corpuscular HGB Conc 33.1 % (30-36); Mean Corpuscular Hemoglobin 26.7 PG (26-34); Mean Corpuscular Volume 80.6 fL (80-100); Monocytes Absolute Auto 500 /uL (0-900); Monocytes Percent Auto 10.3 % (3-14); Neutrophils Absolute Auto 2600 /uL (1500-7000); Neutrophils Percent Auto 54.8 % (50-75); Platelet Count 331 X10^3/uL (150-400); Red Blood Cell Count 4.03 X10^6/uL (4.0-5.2); Red Cell Distribution Width 13.4 % (11.6-14.8); White Blood Cell Count 4.7 X10^3/uL (4.5-11.0)
[2020-12-09 06:46] LABS: Alanine Aminotransferase 17 IU/L (<35); Albumin 3.1 g/dL (3.5-5.0); Albumin Globulin Ratio 0.9 (1.0-2.8); Alkaline Phosphatase 72 U/L (38-126); Aspartate Aminotransferase 20 IU/L (14-36); Bilirubin Total 0.6 mg/dL (0.2-1.3); Blood Urea Nitrogen 8 mg/dL (7-17); Calcium 8.7 mg/dL (8.4-10.2); Carbon Dioxide 28 mmol/L (22-32); Chloride 110 mmol/L (98-107); Estimated Glomerular Filt Rate > 60.0 mL/min (>60); Globulin 3.4 g/dL (1.7-4.1); Glucose 95 mg/dL (70-100); HEMOLYSIS < 15 (0-50); Potassium 3.8 mmol/L (3.4-5.1); Sodium 140 mmol/L (137-145); Total Protein 6.5 g/dL (6.3-8.2)
[2020-12-09 06:58] LABS: Procalcitonin 0.05 ng/mL (<0.5)
[2020-12-09] MEDS: CELECOXIB 200 MG CAPSULE PO ×2 (08:31→21:38)
[2020-12-09] MEDS: DOCUSATE 100 MG CAPSULE PO ×2 (08:31→21:38)
[2020-12-09] MEDS: ENOXAPARIN 30 MG/0.3 ML SYRINGE SUBCUT (08:32)
[2020-12-09] MEDS: SODIUM CHLORIDE 0.9% FLUSH 10 ML IV ×2 (08:32→21:38)
--- NOTE | 2020-12-09 08:52 | DI.CT.S_ITS ---
PROCEDURE: CT ABDOMEN PELVIS W CON INDICATIONS: f/u after abscess drainage TECHNIQUE: After the administration of oral and intravenous contrast, axial sections were acquired from the lung bases to the pubic symphysis. Coronal and sagittal reformats were performed. For radiation dose reduction, the following was used: automated exposure control, adjustment of mA and/or kV according to patient size. COMPARISON:[facility], CT, CT ABDOMEN PELVIS W CON, 12/05/2020, 21:47. [facility], CT, CT DRAIN APPENDICEAL ABSCESS, 12/07/2020, 12:08. FINDINGS: Image quality: Excellent. Lung bases: Unremarkable. Heart: No significant findings. ABDOMEN: Liver: Unremarkable. Gallbladder: Unremarkable. Biliary ducts: Unremarkable. Pancreas: Unremarkable. Spleen: Unremarkable. Adrenal Glands: Unremarkable. Kidneys and Ureters: Unremarkable. Stomach and Bowel: Patient is status post prior appendectomy . There is drainage catheter placement in previously noted abscess collection in right lower quadrant just lateral to right psoas muscle. There is interval decrease in size of the collection now measures approximately 3.3 x 2.9 x 3.2 cm in size series 2, image 44, series 5, image 26. Previously the collection measures approximately 3.3 x 3.4 by 4.5 cm in size. No new abscess collection is seen. No new area of abnormal bowel wall thickening or mesenteric fat stranding. No bowel obstruction. No free fluid or free air. Peritoneum: No abnormal intraperitoneal fluid. No free air. Ventral Wall: No hernia. Abdominal Nodes: No retroperitoneal or mesenteric adenopathy by size criteria. Vessels: Aorta and inferior vena cava are normal in size. PELVIS: Pelvic Organs: Unremarkable. Bladder: Unremarkable. Pelvic Nodes: No enlarged lymph nodes. Miscellaneous: No inguinal hernias are seen. Bones: Unremarkable. IMPRESSION: 1. Interval placement of drainage catheter in patient's known right lower quadrant abscess collection with interval decrease in size of collection as described above. No new abscess collection is seen. No free fluid or free air. No bowel obstruction. 2. Rest of the exam is unremarkable. Dictated by: Nemesio Levin M.D. on 12/09/2020 at 12:26 Approved by: Nemesio Levin M.D. on 12/09/2020 at 12:32
[2020-12-09 10:27] VITALS: BP 100/50; PULSE 51; RESP 16; TEMP 36.6; O2SAT 100
[2020-12-09 16:00] VITALS: BP 104/63; PULSE 55; RESP 16; TEMP 36.7; O2SAT 99
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
--- NOTE | 2020-12-09 19:35 | PC.NURSE ---
pt refused to start new IV, pt would like to wait till tomorrow, since she might DC with oral abx
[2020-12-09 20:00] VITALS: BP 113/72; PULSE 51; RESP 16; TEMP 36.7; O2SAT 99
[2020-12-09] MEDS: OXYCODONE IR 5 MG TABLET PO (23:16)
[2020-12-09 23:55] VITALS: BP 107/70; PULSE 53; RESP 16; TEMP 36.7; O2SAT 96
--- NOTE | 2020-12-10 01:34 | PC.NURSE ---
Patient is alert and oriented. Breath sounds CTA with RA sat of 96%. HRR but bradycardic at 53 bpm. Denies nausea. Continues to be tender in RLQ and also having pain in right back/flank drain site. Percutaneous drain is intact with dressing CDI; to gravity. Had oxycodone for pain at 2316 and is currently asleep. BT present and is passing flatus/stool. Denies dysuria, frequency or urgency with urination. Is up independently. Refusing to wear SCD's so reminded to ankle wave when awake; verbalizes understanding. Fall risk score is low.
[2020-12-10 04:00] VITALS: BP 101/70; PULSE 45; RESP 14; TEMP 36.2; O2SAT 98
[2020-12-10] MEDS: LEVOTHYROXINE 25 MCG TABLET PO (05:57)
[2020-12-10] MEDS: SODIUM CHLORIDE 0.9% 250 ML 21 ML IV (05:57)
[2020-12-10] MEDS: PIPERACILLIN/TAZO 3.375 GM in SODIUM CHLORIDE 0.9% 100 ML 25 ML IV (05:57)
[2020-12-10] MEDS: ACETAMINOPHEN 325 MG TABLET 650 MG PO (05:58)
[2020-12-10] MEDS: SODIUM CHLORIDE 0.9% FLUSH 10 ML IV (05:58)
[2020-12-10 07:46] VITALS: BP 113/66; PULSE 49; RESP 14; TEMP 36.6; O2SAT 98
--- NOTE | 2020-12-10 08:09 | PC.NURSE ---
Addendum entered by Rossy Galindo R.N. 12/10/20 12:04: Patient is taking a shower now. She is being discharged today. Addendum entered by Rossy Galindo R.N. 12/10/20 09:10: Patient ambulated in the taylor without difficulty. Original Note: Patients drain to right flank putting out minimal sanguinous drainage. Dressing to right flank CDI. ABO running concurrently with NS. Patient lying on right side and tolerating well. Patient is comfortable and will use call danielson to call for pain medication when due.
--- NOTE | 2020-12-10 08:14 | PC.NURSE ---
Patients purcutaneous drain to r.flank is putting out sanguinous drainage, small clot towards the bottom of the bag near cap. Will let know this. She is lying on her r.side and comfortable at this time. She is taking tylenol for pain during the rianna and was given this earlier. Patient is hoping to discharge home today, dressing around site is cdi.
[2020-12-10] MEDS: DOCUSATE 100 MG CAPSULE PO (08:23)
[2020-12-10] MEDS: CELECOXIB 200 MG CAPSULE PO (08:23)
[2020-12-10] MEDS: ENOXAPARIN 30 MG/0.3 ML SYRINGE SUBCUT (08:23)
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
== END 2020-12-10 14:26 | disposition home or self-care (01) | DRG 373 ==
LOC: ED 22:53 → AC 22:54
PROVIDERS: Specialist; Admitting Provider Surgery; Emergency Provider Emergency Medicine; PCP Nurse Practitioner; Referring Provider Emergency Medicine; Visit Provider Surgery
DX: K35.33 Acute appendicitis with perforation, localized peritonitis, and gangrene, with abscess (principal); I48.91 Unspecified atrial fibrillation; Z20.822 Contact with and (suspected) exposure to COVID-19
CPT/HCPCS: 36415; 49406; 71045; 74177; 80053; 83605; 83690; 84145; 85025; 85610; 85730; 87040; 87070; 87075; 87205; 87635; 93005; 93010; 96361; 96365; 96375; 99285; C9803; J1650; J2250; J2270; J2543; J3010; Q9967

== ENCOUNTER 2020-12-11 16:22 | Emergency (ER) | payer BC, SELFPAY ==
[2020-12-11 16:33] VITALS: BP 139/94; PULSE 130; RESP 18; TEMP 36.9; O2SAT 98; BMI 22.8
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
[2020-12-11 17:27] VITALS: BP 126/81; PULSE 111
[2020-12-11] MEDS: dilTIAZem 5 MG/ML SDV 10 MG IV (17:27)
[2020-12-11 17:43] VITALS: PULSE 73; RESP 23; O2SAT 96
[2020-12-11 17:53] VITALS: BP 97/75; PULSE 77; RESP 22; O2SAT 96
[2020-12-11 18:00] VITALS: BP 101/77; PULSE 75; RESP 25; O2SAT 96
[2020-12-11 18:12] LABS: Add Manual Diff / Slide Review NO; Basophils Absolute Auto 100 /uL (0-100); Basophils Percent Auto 1.5 % (0-2); Eosinophils Absolute Auto 100 /uL (0-450); Eosinophils Percent Auto 1.7 % (2-4); Hematocrit 39.5 % (36-46); Hemoglobin 12.8 g/dL (12.0-16.0); Lymphocytes Absolute Auto 1200 /uL (1100-4500); Lymphocytes Percent Auto 23.3 % (25-40); Mean Corpuscular HGB Conc 32.4 % (30-36); Mean Corpuscular Hemoglobin 26.4 PG (26-34); Mean Corpuscular Volume 81.6 fL (80-100); Monocytes Absolute Auto 500 /uL (0-900); Monocytes Percent Auto 9.5 % (3-14); Neutrophils Absolute Auto 3400 /uL (1500-7000); Platelet Count 426 X10^3/uL (150-400); Red Blood Cell Count 4.84 X10^6/uL (4.0-5.2); White Blood Cell Count 5.3 X10^3/uL (4.5-11.0)
[2020-12-11 18:22] LABS: Alanine Aminotransferase 22 IU/L (<35); Alkaline Phosphatase 82 U/L (38-126); Aspartate Aminotransferase 33 IU/L (14-36); BUN Creatinine Ratio 8.3 (6-22); Bilirubin Total 0.4 mg/dL (0.2-1.3); Blood Urea Nitrogen 6 mg/dL (7-17); Calcium 9.6 mg/dL (8.4-10.2); Carbon Dioxide 25 mmol/L (22-32); Chloride 108 mmol/L (98-107); Estimated Glomerular Filt Rate > 60.0 mL/min (>60); Globulin 4.1 g/dL (1.7-4.1); Glucose 134 mg/dL (70-100); HEMOLYSIS < 15 (0-50); Lipase 145 U/L (23-300); Potassium 3.7 mmol/L (3.4-5.1); Sodium 142 mmol/L (137-145); Total Protein 8.1 g/dL (6.3-8.2)
== END 2020-12-11 18:15 | disposition home or self-care (01) ==
PROVIDERS: Emergency Provider Emergency Medicine; PCP Nurse Practitioner
DX: I48.91 Unspecified atrial fibrillation (principal)
CPT/HCPCS: 36415; 80053; 83690; 85025; 93005; 93010; 96374; 99284

== ENCOUNTER → 2020-12-22 09:30 | Outpatient (CLI) | payer BC, SELFPAY ==
[2020-12-06 00:07] VITALS: BMI 26.4
[2020-12-22 09:45] LABS: Add Manual Diff / Slide Review NO; Basophils Absolute Auto 100 /uL (0-100); Basophils Percent Auto 1.3 % (0-2); Eosinophils Absolute Auto 400 /uL (0-450); Eosinophils Percent Auto 5.7 % (2-4); Hematocrit 41.8 % (36-46); Hemoglobin 13.7 g/dL (12.0-16.0); Lymphocytes Absolute Auto 1700 /uL (1100-4500); Lymphocytes Percent Auto 26.5 % (25-40); Mean Corpuscular HGB Conc 32.8 % (30-36); Mean Corpuscular Hemoglobin 26.8 PG (26-34); Mean Corpuscular Volume 81.7 fL (80-100); Monocytes Absolute Auto 600 /uL (0-900); Monocytes Percent Auto 9.4 % (3-14); Neutrophils Absolute Auto 3700 /uL (1500-7000); Neutrophils Percent Auto 57.1 % (50-75); Platelet Count 221 X10^3/uL (150-400); Red Blood Cell Count 5.12 X10^6/uL (4.0-5.2); Red Cell Distribution Width 14.8 % (11.6-14.8); White Blood Cell Count 6.4 X10^3/uL (4.5-11.0)
[2020-12-22 10:23] LABS: Procalcitonin 0.04 ng/mL (<0.5)
== END ==
PROVIDERS: PCP Nurse Practitioner; Referring Provider Specialist; Visit Provider Specialist
DX: K65.1 Peritoneal abscess (principal)
CPT/HCPCS: 36415; 84145; 85025

== ENCOUNTER → 2020-12-28 14:15 | Outpatient (CLI) | payer BC, SELFPAY ==
[2020-12-06 00:07] VITALS: BMI 26.4
[2020-12-28 14:58] LABS: Add Manual Diff / Slide Review NO; Basophils Absolute Auto 100 /uL (0-100); Basophils Percent Auto 1.3 % (0-2); Eosinophils Absolute Auto 200 /uL (0-450); Eosinophils Percent Auto 3.4 % (2-4); Hematocrit 40.2 % (36-46); Lymphocytes Absolute Auto 1900 /uL (1100-4500); Lymphocytes Percent Auto 31.6 % (25-40); Mean Corpuscular HGB Conc 32.2 % (30-36); Mean Corpuscular Hemoglobin 26.4 PG (26-34); Monocytes Absolute Auto 500 /uL (0-900); Monocytes Percent Auto 8.6 % (3-14); Neutrophils Absolute Auto 3300 /uL (1500-7000); Neutrophils Percent Auto 55.1 % (50-75); Platelet Count 189 X10^3/uL (150-400); Red Cell Distribution Width 14.4 % (11.6-14.8); White Blood Cell Count 5.9 X10^3/uL (4.5-11.0)
== END ==
PROVIDERS: PCP Nurse Practitioner; Referring Provider Surgery; Visit Provider Surgery
DX: K65.1 Peritoneal abscess (principal)
CPT/HCPCS: 36415; 85025

== ENCOUNTER → 2021-04-09 07:56 | Outpatient (CLI) | payer BC, SELFPAY ==
[2021-04-09 08:34] LABS: Add Manual Diff / Slide Review NO; Basophils Absolute Auto 100 /uL (0-100); Basophils Percent Auto 1.1 % (0-2); Eosinophils Absolute Auto 300 /uL (0-450); Hematocrit 43.9 % (36-46); Hemoglobin 14.6 g/dL (12.0-16.0); Lymphocytes Absolute Auto 1900 /uL (1100-4500); Lymphocytes Percent Auto 34.6 % (25-40); Mean Corpuscular HGB Conc 33.2 % (30-36); Mean Corpuscular Hemoglobin 26.4 PG (26-34); Mean Corpuscular Volume 79.7 fL (80-100); Monocytes Absolute Auto 500 /uL (0-900); Monocytes Percent Auto 8.7 % (3-14); Neutrophils Absolute Auto 2700 /uL (1500-7000); Neutrophils Percent Auto 50.6 % (50-75); Platelet Count 187 X10^3/uL (150-400); Red Blood Cell Count 5.51 X10^6/uL (4.0-5.2); Red Cell Distribution Width 14.1 % (11.6-14.8); White Blood Cell Count 5.4 X10^3/uL (4.5-11.0)
[2021-04-09 08:47] LABS: Creatinine Urine Random 205.8 mg/dL
[2021-04-09 08:52] LABS: Microalbumi Creatinin Ratio Ur 5.3 ug/mg CR (<30); Microalbumin Urine Random 1.1 mg/dL (0-1.6)
[2021-04-09 09:10] LABS: Alanine Aminotransferase 15 IU/L (<35); Albumin 4.3 g/dL (3.5-5.0); Albumin Globulin Ratio 1.3 (1.0-2.8); Alkaline Phosphatase 78 U/L (38-126); Aspartate Aminotransferase 24 IU/L (14-36); BUN Creatinine Ratio 12.6 (6-22); Bilirubin Total 1.5 mg/dL (0.2-1.3); Blood Urea Nitrogen 11 mg/dL (7-17); Calcium 9.4 mg/dL (8.4-10.2); Carbon Dioxide 28 mmol/L (22-32); Chloride 104 mmol/L (98-107); Cholesterol 221 mg/dL (140-199); Estimated Glomerular Filt Rate > 60.0 mL/min (>60); Globulin 3.2 g/dL (1.7-4.1); Glucose 89 mg/dL (70-100); HDL Cholesterol 53 mg/dL (40-60); HEMOLYSIS < 15 (0-50); LDL Cholesterol Calculated 136 mg/dL (<100); Potassium 3.8 mmol/L (3.4-5.1); Sodium 140 mmol/L (137-145); Total Protein 7.5 g/dL (6.3-8.2); Triglycerides 162 mg/dL (35-150)
[2021-04-09 09:39] LABS: Thyroid Stimulating Hormone 3.27 uIU/mL (0.47-4.68)
== END ==
PROVIDERS: PCP Nurse Practitioner; Referring Provider Nurse Practitioner; Visit Provider Nurse Practitioner
DX: Z00.00 Encounter for general adult medical examination without abnormal findings (principal); E03.9 Hypothyroidism, unspecified; E78.5 Hyperlipidemia, unspecified
CPT/HCPCS: 36415; 80053; 80061; 82043; 82570; 84443; 85025

== ENCOUNTER → 2021-04-21 10:38 | Outpatient (CLI) | payer BC, SELFPAY ==
--- NOTE | 2021-04-21 11:10 | DI.US.S_ITS ---
PROCEDURE: US ABDOMEN LIMITED INDICATIONS: ELEVATED LFTS, BILIRUBIN TECHNIQUE: Real-time focused scanning was performed of the abdomen, with image documentation. COMPARISON: [facility], CT, CT ABDOMEN PELVIS W CON, 12/09/2020, 12:11. FINDINGS: Visualized liver is normal in size and echotexture. There are multiple gallbladder polyps. The largest polyp measures 4 mm. No gallstones. No gallbladder wall thickening, pericholecystic fluid or sonographic Daniel's sign. Common bile duct is normal in caliber measuring 5.8 mm. Visualized pancreas is normal. IMPRESSION: 1. Liver is grossly normal. 2. There are multiple gallbladder polyps measuring up to 4 mm. 3. No gallstones nor ultrasound finding to suggest acute cholecystitis. 4. Normal caliber of common bile duct. Dictated by: Che Alba M.D. on 04/21/2021 at 14:21 Approved by: Che Alba M.D. on 04/21/2021 at 14:25
== END ==
PROVIDERS: PCP Nurse Practitioner; Referring Provider Nurse Practitioner; Visit Provider Nurse Practitioner
DX: R79.89 Other specified abnormal findings of blood chemistry (principal); K82.4 Cholesterolosis of gallbladder
CPT/HCPCS: 76705

== ENCOUNTER → 2021-05-27 07:36 | Outpatient (CLI) | payer BC, SELFPAY ==
[2021-05-27 09:12] LABS: Alanine Aminotransferase 14 IU/L (<35); Albumin 3.9 g/dL (3.5-5.0); Albumin Globulin Ratio 1.3 (1.0-2.8); Alkaline Phosphatase 65 U/L (38-126); Aspartate Aminotransferase 23 IU/L (14-36); BUN Creatinine Ratio 14.6 (6-22); Bilirubin Total 1.3 mg/dL (0.2-1.3); Blood Urea Nitrogen 13 mg/dL (7-17); Carbon Dioxide 27 mmol/L (22-32); Chloride 103 mmol/L (98-107); Estimated Glomerular Filt Rate > 60.0 mL/min (>60); Glucose 89 mg/dL (70-100); HEMOLYSIS < 15 (0-50); Potassium 4.1 mmol/L (3.4-5.1); Sodium 138 mmol/L (137-145); Total Protein 6.9 g/dL (6.3-8.2)
== END ==
PROVIDERS: PCP Nurse Practitioner; Referring Provider Nurse Practitioner; Visit Provider Nurse Practitioner
DX: R79.89 Other specified abnormal findings of blood chemistry (principal)
CPT/HCPCS: 36415; 80053

== ENCOUNTER → 2021-05-31 14:37 | Outpatient (CLI) | payer BC, SELFPAY ==
--- NOTE | 2021-05-31 14:38 | DI.MG.S_ITS ---
BILATERAL DIGITAL SCREENING MAMMOGRAM 3D/2D WITH CAD: 05/31/2021 CLINICAL: Routine screening. Family history of breast cancer. Comparison is made to exams dated: 12/29/2015 mammogram, 03/04/2013 mammogram - [facility], 03/25/2019 mammogram, 03/12/2018 mammogram, and 02/26/2017 mammogram - outside location. There are scattered fibroglandular elements in both breasts. Current study was also evaluated with a Computer Aided Detection (CAD) system. There are benign post operative findings in the left breast. No significant masses, calcifications, or other findings are seen in either breast. There has been no significant interval change. IMPRESSION: BENIGN There is no mammographic evidence of malignancy. A 1 year screening mammogram is recommended. This exam was interpreted at Station ID: [id number]. NOTE: For mammograms, a report in lay terms will be sent to the patient. Approximately 15% of breast malignancies will not be visualized mammographically. In the management of a palpable breast mass, a negative mammogram must not discourage biopsy of a clinically suspicious lesion. Electronically Signed By: Jamila cotto/mirtha:05/31/2021 15:12:27 letter sent: Normal Exam ACR BI-RADS Category 2: Benign Finding(s) 3342F
== END ==
PROVIDERS: PCP Nurse Practitioner; Referring Provider Nurse Practitioner; Visit Provider Nurse Practitioner
DX: Z12.31 Encounter for screening mammogram for malignant neoplasm of breast (principal); Z80.3 Family history of malignant neoplasm of breast
CPT/HCPCS: 77063; 77067

== ENCOUNTER → 2022-09-09 09:15 | Outpatient (CLI) | payer BC, SELFPAY ==
[2022-09-09 10:50] LABS: Add Manual Diff / Slide Review NO; Basophils Absolute Auto 0 /uL (0-100); Basophils Percent Auto 0.9 % (0-2); Eosinophils Absolute Auto 400 /uL (0-450); Eosinophils Percent Auto 7.4 % (2-4); Hematocrit 44.4 % (36-46); Hemoglobin 14.6 g/dL (12.0-16.0); Lymphocytes Absolute Auto 1700 /uL (1100-4500); Lymphocytes Percent Auto 29.9 % (25-40); Mean Corpuscular Hemoglobin 26.7 PG (26-34); Monocytes Absolute Auto 500 /uL (0-900); Monocytes Percent Auto 8.3 % (3-14); Neutrophils Absolute Auto 3000 /uL (1500-7000); Neutrophils Percent Auto 53.5 % (50-75); Platelet Count 223 X10^3/uL (150-400); Red Blood Cell Count 5.48 X10^6/uL (4.0-5.2); Red Cell Distribution Width 14.4 % (11.6-14.8); White Blood Cell Count 5.6 X10^3/uL (4.5-11.0)
[2022-09-09 11:03] LABS: Alanine Aminotransferase 27 IU/L (<35); Albumin 4.1 g/dL (3.5-5.0); Albumin Globulin Ratio 1.2 (1.0-2.8); Alkaline Phosphatase 93 U/L (38-126); Aspartate Aminotransferase 31 IU/L (14-36); BUN Creatinine Ratio 18.7 (6-22); Bilirubin Total 0.9 mg/dL (0.2-1.3); Blood Urea Nitrogen 17 mg/dL (7-17); Calcium 8.9 mg/dL (8.4-10.2); Carbon Dioxide 30 mmol/L (22-32); Chloride 105 mmol/L (98-107); Cholesterol 223 mg/dL (140-199); Estimated Glomerular Filt Rate > 60 mL/min (>60); Globulin 3.4 g/dL (1.7-4.1); Glucose 102 mg/dL (70-100); HDL Cholesterol 58 mg/dL (40-60); HEMOLYSIS < 15 (0-50); LDL Cholesterol Calculated 148 mg/dL (<100); Magnesium 2.2 mg/dL (1.6-2.3); Potassium 4.2 mmol/L (3.4-5.1); Sodium 140 mmol/L (137-145); Total Protein 7.5 g/dL (6.3-8.2); Triglycerides 85 mg/dL (35-150)
[2022-09-09 12:04] LABS: Creatinine Urine Random 232.8 mg/dL
[2022-09-09 12:09] LABS: Microalbumi Creatinin Ratio Ur 6.8 ug/mg CR (<30); Microalbumin Urine Random 1.6 mg/dL (0-1.6)
[2022-09-12 03:12] LABS: Hep C Virus Ab w/Reflex Quant NEGATIVE s/c (NEGATIVE)
[2022-09-12 05:00] LABS: Free T3, Triiodothyronine Free 3.74 pg/mL (2.77-5.27); Free T4, Direct Thyroxine 1.32 ng/dL (0.78-2.19)
[2022-09-12 05:13] LABS: Thyroid Stimulating Hormone 1.55 uIU/mL (0.47-4.68)
== END ==
PROVIDERS: PCP Nurse Practitioner; Referring Provider Nurse Practitioner; Visit Provider Nurse Practitioner
DX: Z00.00 Encounter for general adult medical examination without abnormal findings (principal); Z11.59 Encounter for screening for other viral diseases; E83.42 Hypomagnesemia; I48.91 Unspecified atrial fibrillation
CPT/HCPCS: 36415; 80053; 80061; 82043; 82570; 83735; 84439; 84443; 84481; 85025; 86803

== ENCOUNTER → 2022-09-11 10:04 | Outpatient (CLI) | payer BC, SELFPAY ==
--- NOTE | 2022-09-11 10:05 | DI.RAD.S_ITS ---
PROCEDURE: XR CHEST 2V INDICATIONS: cough TECHNIQUE: 2 views of the chest were acquired. COMPARISON: [facility], CR, XR CHEST 1V, 12/05/2020, 20:56. FINDINGS: Surgical changes and devices: None. Lungs and pleura: Lungs are clear. No pleural effusions or pneumothorax. Mediastinum: Mediastinal contours are normal. Heart size is normal. Bones and chest wall: No suspicious bony abnormalities. Soft tissues appear unremarkable. IMPRESSION: No evidence for active disease in the chest. Dictated by: Lonnie Jon M.D. on 09/11/2022 at 10:49 Approved by: Lonnie Jon M.D. on 09/11/2022 at 10:50
[2022-09-12 18:38] LABS: Fecal Immunochemical Test Negative (Negative)
== END ==
PROVIDERS: PCP Nurse Practitioner; Referring Provider Nurse Practitioner; Visit Provider Nurse Practitioner
DX: R05.9 Cough, unspecified (principal); Z12.11 Encounter for screening for malignant neoplasm of colon
CPT/HCPCS: 71046; 82274

== ENCOUNTER 2022-09-28 13:36 | Emergency (ER) | payer BC, SELFPAY ==
[2022-09-28 13:41] VITALS: BP 136/88; PULSE 61; O2SAT 99
[2022-09-28 13:43] VITALS: BP 136/88; PULSE 57; RESP 16; TEMP 36.6; O2SAT 98; BMI 24.8
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
[2022-09-28 14:00] VITALS: PULSE 59; RESP 24; O2SAT 97
[2022-09-28 14:03] VITALS: BP 120/82; PULSE 60; RESP 18; O2SAT 97
[2022-09-28 14:10] LABS: Add Manual Diff / Slide Review NO; Basophils Absolute Auto 100 /uL (0-100); Eosinophils Absolute Auto 200 /uL (0-450); Eosinophils Percent Auto 2.6 % (2-4); Hematocrit 44.7 % (36-46); Hemoglobin 15.1 g/dL (12.0-16.0); Lymphocytes Absolute Auto 2100 /uL (1100-4500); Lymphocytes Percent Auto 25.5 % (25-40); Mean Corpuscular HGB Conc 33.7 % (30-36); Mean Corpuscular Hemoglobin 26.9 PG (26-34); Mean Corpuscular Volume 79.9 fL (80-100); Monocytes Absolute Auto 600 /uL (0-900); Monocytes Percent Auto 7.6 % (3-14); Neutrophils Absolute Auto 5100 /uL (1500-7000); Neutrophils Percent Auto 63.3 % (50-75); Platelet Count 213 X10^3/uL (150-400); Red Blood Cell Count 5.59 X10^6/uL (4.0-5.2); Red Cell Distribution Width 14.9 % (11.6-14.8); White Blood Cell Count 8.1 X10^3/uL (4.5-11.0)
[2022-09-28 14:29] LABS: Alanine Aminotransferase 26 IU/L (<35); Albumin Globulin Ratio 1.1 (1.0-2.8); Alkaline Phosphatase 73 U/L (38-126); Aspartate Aminotransferase 27 IU/L (14-36); BUN Creatinine Ratio 18.3 (6-22); Bilirubin Total 0.9 mg/dL (0.2-1.3); Blood Urea Nitrogen 15 mg/dL (7-17); Calcium 8.8 mg/dL (8.4-10.2); Carbon Dioxide 26 mmol/L (22-32); Chloride 106 mmol/L (98-107); Estimated Glomerular Filt Rate > 60 mL/min (>60); Globulin 3.5 g/dL (1.7-4.1); Glucose 96 mg/dL (70-100); HEMOLYSIS < 15 (0-50); Magnesium 2.2 mg/dL (1.6-2.3); Potassium 4.1 mmol/L (3.4-5.1); Sodium 138 mmol/L (137-145); Total Protein 7.5 g/dL (6.3-8.2)
[2022-09-28 15:48] VITALS: BP 105/74; PULSE 58; RESP 20; TEMP 36.6; O2SAT 96
== END 2022-09-28 15:50 | disposition home or self-care (01) ==
PROVIDERS: Emergency Provider Emergency Medicine; PCP Nurse Practitioner
DX: I48.0 Paroxysmal atrial fibrillation (principal)
CPT/HCPCS: 36415; 80053; 83735; 84443; 85025; 93005; 93010; 99283; 99284

== ENCOUNTER → 2023-12-15 08:20 | Outpatient (CLI) | payer BC, SELFPAY ==
[2023-12-15 09:08] LABS: Add Manual Diff / Slide Review NO; Basophils Absolute Auto 100 /uL (0-100); Eosinophils Absolute Auto 300 /uL (0-450); Eosinophils Percent Auto 5.2 % (2-4); Hematocrit 42.9 % (36-46); Hemoglobin 14.2 g/dL (12.0-16.0); Lymphocytes Absolute Auto 1700 /uL (1100-4500); Lymphocytes Percent Auto 33.3 % (25-40); Mean Corpuscular HGB Conc 33.2 % (30-36); Mean Corpuscular Hemoglobin 26.9 PG (26-34); Mean Corpuscular Volume 81.1 fL (80-100); Monocytes Absolute Auto 500 /uL (0-900); Monocytes Percent Auto 8.7 % (3-14); Neutrophils Absolute Auto 2700 /uL (1500-7000); Neutrophils Percent Auto 51.8 % (50-75); Platelet Count 204 X10^3/uL (150-400); Red Cell Distribution Width 14.2 % (11.6-14.8); White Blood Cell Count 5.2 X10^3/uL (4.5-11.0)
[2023-12-15 09:20] LABS: Alanine Aminotransferase 16 IU/L (<35); Albumin 4.1 g/dL (3.5-5.0); Albumin Globulin Ratio 1.3 (1.0-2.8); Alkaline Phosphatase 70 U/L (38-126); Aspartate Aminotransferase 25 IU/L (14-36); BUN Creatinine Ratio 9.9 (6-22); Bilirubin Total 1.6 mg/dL (0.2-1.3); Blood Urea Nitrogen 9 mg/dL (7-17); Calcium 8.8 mg/dL (8.4-10.2); Carbon Dioxide 28 mmol/L (22-32); Chloride 109 mmol/L (98-107); Cholesterol 234 mg/dL (140-199); Estimated Glomerular Filt Rate > 60 mL/min (>60); Globulin 3.2 g/dL (1.7-4.1); Glucose 101 mg/dL (70-100); HDL Cholesterol 70 mg/dL (40-60); HEMOLYSIS < 15 (0-50); LDL Cholesterol Calculated 147 mg/dL (<100); Sodium 139 mmol/L (137-145); Total Protein 7.3 g/dL (6.3-8.2); Triglycerides 86 mg/dL (35-150)
[2023-12-15 09:52] LABS: TSH w/ Reflex to FT4 1.63 uIU/mL (0.47-4.68)
== END ==
PROVIDERS: PCP Nurse Practitioner; Referring Provider Nurse Practitioner; Visit Provider Nurse Practitioner
DX: R79.89 Other specified abnormal findings of blood chemistry (principal); E78.2 Mixed hyperlipidemia; E03.9 Hypothyroidism, unspecified
CPT/HCPCS: 80053; 80061; 84443; 85025